=== PATIENT | female | born 1975 | race Caucasian/White ===

== ENCOUNTER 2016-06-16 06:08 | Day surgery (SDC) | payer OTHER ==
[2016-06-06 17:45] VITALS: BMI 40.3
[2016-06-16] MEDS ORDERED: MIDAZOLAM HCL 2 MG/2 ML SINGLE DOSE VIAL ONE (08:36)
--- NOTE | 2016-06-16 09:32 | OP ---
Operative Note - Note: Operative Date: 06/16/16 Pre-Operative Diagnosis: left frozen shoulder Operation: HOWIE Left shoulder Post-Operative Diagnosis: Same as Pre-op Surgeon: Dewey Joyce Anesthesia: General Operative Report Dictated: Yes
--- NOTE | 2016-06-16 09:32 | DS ---
Physical Examination Vital Signs: Vital Signs Temperature 98.9 F 06/16/16 07:01 Pulse Rate 73 06/16/16 07:01 Respiratory Rate 16 06/16/16 07:01 Blood Pressure 112/76 06/16/16 07:01 O2 Sat by Pulse Oximetry (%) 98 06/16/16 07:01 Discharge Summary Reason For Visit: LEFT FROZEN SHOULDER Condition: Good - Instructions Diet, Activity, Other Instructions: Move the left shoulder as much as tolerated Use the arm for activities as tolerated. Disposition: HOME - Home Medications Comprehensive Discharge Medication List: Ambulatory Orders NK [No Known Home Medication] 06/06/16
[2016-06-16] MEDS ORDERED: oxyCODONE HCL 5 MG TABLET PO PRN (09:43)
[2016-06-16] MEDS ORDERED: oxyCODONE HCL 5 MG TABLET ONE (10:11)
[2016-06-16] MEDS ORDERED: LACTATED RINGERS SOLUTION 1,000 ML IV SCH (10:15)
[2016-06-16 10:20] VITALS: TEMP 98.1
[2016-06-16 10:55] VITALS: PULSE 73
[2016-06-16 10:56] VITALS: BP 108/74
[2016-06-16] MEDS ORDERED: ONDANSETRON 4 MG/2 ML VIAL IVPUSH PRN (11:20)
== END 2016-06-16 11:01 | disposition home or self-care (01) ==
LOC: FASU 06:08
PROVIDERS: ATTEND Orthopaedic Surgery
PROC: 0RSKXZZ Reposition Left Shoulder Joint, External Approach (ICD-10-PCS; principal; 2016-06-16 08:47)
DX: M75.02 Adhesive capsulitis of left shoulder (principal)
CPT/HCPCS: 84703; 94760

== ENCOUNTER 2017-10-05 06:19 | Day surgery (SDC) | payer OTHER ==
[2017-09-28 10:17] VITALS: BMI 40.3
[2017-10-05] MEDS ORDERED: oxyCODONE HCL 5 MG TABLET PO PRN ×2 (09:13→09:33)
--- NOTE | 2017-10-05 09:16 | OP ---
Operative Note - Note: Operative Date: 10/05/17 Pre-Operative Diagnosis: right frozen shoulder Operation: HOWIE Surgeon: Dewey Joyce Operative Report Dictated: Yes
--- NOTE | 2017-10-05 09:17 | DS ---
Physical Examination Vital Signs: Vital Signs Temperature 98.8 F 10/05/17 07:06 Pulse Rate 66 10/05/17 07:06 Respiratory Rate 16 10/05/17 07:06 Blood Pressure 120/85 10/05/17 07:06 O2 Sat by Pulse Oximetry (%) 100 10/05/17 07:06 Discharge Summary Reason For Visit: RIGHT FROZEN SHOULDER Condition: Good - Instructions Diet, Activity, Other Instructions: Move the shoulder as much as possible stretch the shoulder four times a day. Use pain medication only if the pain is very severe. Disposition: HOME - Home Medications Comprehensive Discharge Medication List: Ambulatory Orders NK [No Known Home Medication] 09/28/17
[2017-10-05] MEDS ORDERED: KETOROLAC TROMETHAMINE 30 MG/1 ML VIAL ONE (09:26)
[2017-10-05] MEDS ORDERED: ONDANSETRON 4 MG/2 ML VIAL IVPUSH PRN (09:33)
[2017-10-05] MEDS ORDERED: LACTATED RINGERS SOLUTION 1,000 ML IV SCH (09:45)
[2017-10-05] MEDS ORDERED: oxyCODONE HCL 5 MG TABLET ONE (10:45)
[2017-10-05 11:08] VITALS: TEMP 97.9
[2017-10-05 11:20] VITALS: BP 130/72; PULSE 71
== END 2017-10-05 11:20 | disposition home or self-care (01) ==
LOC: FASU 06:19
PROVIDERS: ATTEND Orthopaedic Surgery
PROC: 0RNJXZZ Release Right Shoulder Joint, External Approach (ICD-10-PCS; principal; 2017-10-05 09:09)
DX: M75.01 Adhesive capsulitis of right shoulder (principal)
CPT/HCPCS: 84703; 94760